=== PATIENT | male | born 1990 | race Hispanic/Latino ===

== ENCOUNTER 2023-01-16 11:24 | Emergency (ER) | payer OTHER, SELFPAY ==
[2023-01-16] MEDS ORDERED: Ibuprofen 200 MG TAB ONE (12:18)
== END 2023-01-16 12:40 ==
LOC: CSHERS 11:24
DX: S90.812A Abrasion, left foot, initial encounter (principal); S90.811A Abrasion, right foot, initial encounter; W22.8XXA Striking against or struck by other objects, initial encounter
CPT/HCPCS: 99283